=== PATIENT | male | born 1990 | race Two or more races ===

== ENCOUNTER 2019-11-26 08:53 | Emergency (ER) | payer MEDICAID, SELFPAY ==
[~2019-11-26] VITALS: Ht 172.7 cm; Wt 122.5 kg
[2019-11-26 09:05] VITALS: Ht 172.7 cm; Wt 122.5 kg
[2019-11-26 11:41] VITALS: BP 124/53
== END 2019-11-26 11:41 | disposition home or self-care (01) ==
LOC: ED 08:53
DX: J18.9 Pneumonia, unspecified organism (principal); Z20.828 Contact with and (suspected) exposure to other viral communicable diseases
CPT/HCPCS: J0696; Q0092